=== PATIENT | female | born 1945 ===

== ENCOUNTER 2017-07-11 13:07 | Emergency (ER) | payer MEDICARE, OTHER ==
[2017-07-11 13:08] VITALS: BMI 27.3
[2017-07-11 13:22] VITALS: BP 124/82; PULSE 80; RESP 16; TEMP 98.2; O2SAT 100
[2017-07-11] MEDS ORDERED: Sodium Chloride 0.9% 1,000 ML IV SCH (14:00)
--- NOTE | 2017-07-11 14:06 | ED PDOC ---
HPI: Abdomen Time Seen by Provider: 07/11/17 13:47 Chief Complaint (Nursing): Abdominal Pain History Per: Patient History/Exam Limitations: no limitations Onset/Duration Of Symptoms: Days (7) Outside of [place] travel?: No Current Symptoms Are (Timing): Still Present Context: Food Location Of Pain/Discomfort: Epigastric Quality Of Discomfort: "Pain" Associated Symptoms: Nausea, Loss Of Appetite, Constipation. denies: Vomiting Exacerbating Factors: Food Alleviating Factors: None Last Bowel Movement: Days Ago (3) Additional Complaint(s): 71 year old female, with a past medical history that includes HTN, asthma, hypothyroidism and Diabetes presents to ED with complaints of epigastric abdominal pain for one week. She is unable to describe pain but it is intermittent and worsened after eating. She states she has not eaten for the past 2 days and today felt lightheaded and nauseous, she ate cheerios and pain started again. She also reports no bowel movement for 3 days. Denies fever. Abnormal Vaginal Bleeding: No Past Medical History Reviewed: Historical Data, Nursing Documentation, Vital Signs Vital Signs: Last Vital Signs Temp 98.2 F 07/11/17 13:18 Pulse 80 07/11/17 13:18 Resp 16 07/11/17 13:18 BP 124/82 07/11/17 13:18 Pulse Ox 100 07/11/17 15:50 - Medical History PMH: Anemia, Arthritis (osteoarthritis), Asthma, Depression, Diabetes (type II) , Gastritis, HTN, Hypercholesterolemia, Osteoporosis - Surgical History Surgical History: Cholecystectomy - Family History Family History: States: Unknown Family Hx - Social History Alcohol: None Drugs: Denies - Immunization History Hx Tetanus Toxoid Vaccination: No Hx Influenza Vaccination: No Hx Pneumococcal Vaccination: No - Home Medications Home Medications: Ambulatory Orders Medication Instructions Recorded Brimonidine 0.2% [Alphagan 0.2% 1 drop OU BID 07/21/14 Opht] Ezetimibe [Zetia] 10 mg PO DAILY 07/21/14 Fenofibrate,Micronized 134 mg PO DAILY 07/21/14 [Fenofibrate] Insulin Aspart, Recombinant 10 unit SC BID 07/21/14 [Novolog] Levothyroxine [Synthroid] 0.1 mg PO DAILY 07/21/14 Meclizine [Antivert] 12.5 mg PO DAILY 07/21/14 Montelukast [Singulair] 10 mg PO DAILY 07/21/14 Rosuvastatin Calcium [Crestor] 40 mg PO DAILY 07/21/14 Clotrimazole/Betamethasone 1 ml TOP BID #30 gm 10/02/14 [Lotrisone] Albuterol 0.5% [Albuterol 0.5% 3 ml IH Q4 PRN #60 ml 11/10/14 Inhal Lucy (2.5 mg/0.5 ml) UD] Methylprednisolone [Medrol Dose 4 mg PO DAILY #21 mg 11/10/14 Pack (21 tabs)] guaiFENesin/Codeine [Robitussin 5 ml PO Q4H PRN #240 ml 11/10/14 w/Codeine] traMADol [Ultram] 50 mg PO TID PRN #15 tab 01/12/16 Famotidine [Heartburn Prevention] 20 mg PO DAILY 06/27/16 Valsartan/Hydrochlorothiazide 25 - 320 mg PO DAILY 06/27/16 [Valsartan-Hctz 320-25 mg Tab] traMADol [Ultram] 50 mg PO Q6 PRN #12 tab 06/27/16 Nystatin [Nystatin Oral Susp] 400,000 unit PO Q6 #1 bottle 10/31/16 Azithromycin [Zithromax] 250 mg PO DAILY #6 dose 01/05/17 Benzonatate [Tessalon Perle] 200 mg PO TID PRN #30 capsule 01/05/17 Ferrous Sulfate [Feosol] 325 mg PO TID #90 tab 01/05/17 Naproxen [Naprosyn Tab] 375 mg PO BID PRN #60 tab 01/05/17 Promethazine HCl/Codeine 5 ml PO Q6 PRN #120 ml 01/05/17 [Prometh-Codein 6.25-10 mg/5 ml] Omeprazole 20 mg PO DAILY #30 tablet. 07/11/17 - Allergies Allergies/Adverse Reactions: Allergies Allergy/AdvReac Type Severity Reaction Status Date / Time No Known Allergies Allergy Verified 06/27/16 19:27 Review of Systems Constitutional: Negative for: Fever, Weakness, Malaise Cardiovascular: Negative for: Chest Pain, Palpitations Respiratory: Negative for: Cough, Shortness of Breath Gastrointestinal: Positive for: Nausea, Abdominal Pain, Constipation. Negative for: Vomiting, Diarrhea Genitourinary Female: Negative for: Dysuria Musculoskeletal: Negative for: Back Pain Skin: Negative for: Rash Neurological: Negative for: Weakness, Numbness, Headache, Dizziness Physical Exam - Reviewed Nursing Documentation Reviewed: Yes Vital Signs Reviewed: Yes - Physical Exam Appears: Positive for: Non-toxic, No Acute Distress Head Exam: Positive for: ATRAUMATIC, NORMAL INSPECTION, NORMOCEPHALIC Skin: Positive for: Warm, Dry. Negative for: Diaphoresis, Pallor, Rash Eye Exam: Positive for: Normal appearance Neck: Positive for: Normal, Painless ROM Cardiovascular/Chest: Positive for: Regular Rate, Rhythm, Chest Non Tender. Negative for: Murmur Respiratory: Positive for: Normal Breath Sounds. Negative for: Wheezing, Respiratory Distress Gastrointestinal/Abdominal: Positive for: Soft, Tenderness (mild epigastric). Negative for: Distended, Guarding, Hernia Back: Positive for: Normal Inspection. Negative for: L CVA Tenderness, R CVA Tenderness Extremity: Positive for: Normal ROM. Negative for: Tenderness, Pedal Edema, Deformity, Swelling Neurologic/Psych: Positive for: Alert, Oriented - Laboratory Results Result Diagrams: 07/11/17 14:15 07/11/17 14:15 Urine dip results: Positive for: Leukocyte Esterase (small), Blood (trace) - ECG O2 Sat by Pulse Oximetry: 100 Medical Decision Making Medical Decision Making: Impression: epigastric abdominal pain Prior records reviewed: Last seen 01/05/17 for cough and treated for bronchitis. Plan: * Labs * Obstructive series * IV NS, Pepcid, Toradol Progress: Labs reviewed showing no leukocytosis, NaCl slightly low. NS given Xray ABDOMEN AND PELVIS: Bowel: There is moderate amount of stool in the descending colon. The bowel gas pattern is nonspecific. No evidence of mechanical obstruction. Free air: None. 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 Bones are within normal limits for the patient's age. Other findings: Surgical clips in the right upper quadrant are related to prior cholecystectomy. IMPRESSION: Nonobstructive bowel-gas pattern. Clear lungs. 1530 Patient reevaluated and is resting comfortably in bed, she reports abdominal pain has improved. Vital signs stable, no fever. Abdomen remains soft , no sign of surgical pathology. discuss results with patient and family. Patient feels comfortable going home and will be discharged. Disposition - Clinical Impression Clinical Impression: Epigastric abdominal pain, Gastritis - Patient ED Disposition Is Patient to be Admitted: No Counseled Patient/Family Regarding: Studies Performed, Diagnosis, Need For Followup, Rx Given - Disposition Referrals: Prosper Dickey MD [Staff Provider] - Disposition: Routine/Home Disposition Time: 15:47 Condition: IMPROVED Additional Instructions: [facility] labor[facility]ios nathanael normales Por favor tome medicamentos diariamente [place] necesario para el dolor Seguimiento en la clnica para ms atencin Prescriptions: Omeprazole 20 mg PO DAILY #30 tablet. Instructions: Gastritis (DC) Forms: [employer] (Mosotho) Print Language: SETSWANA - POA Present On Arrival: None
[2017-07-11 14:30] LABS: BASO % 0.5 % (0.0-2.0); EOS # 0.1 K/uL (0.0-0.7); EOS % 1.5 % (0.0-4.0); HEMATOCRIT 34.9 % (34.0-47.0); LYMPH # 1.3 K/uL (1.0-4.3); LYMPH % 19.6 % (20.0-40.0); MEAN CORPUSCULAR HEMOGLOBIN 27.5 pg (27.0-31.0); MEAN CORPUSCULAR HGB CONC 33.5 g/dL (33.0-37.0); MEAN PLATELET VOLUME 8.3 fl (7.2-11.7); MONO # 0.6 K/uL (0.0-0.8); MONO % 8.9 % (0.0-10.0); NEUT # 4.6 K/uL (1.8-7.0); NEUT % 69.5 % (50.0-75.0); RED CELL DISTRIBUTION WIDTH 14.3 % (11.5-14.5); WHITE BLOOD COUNT 6.6 K/uL (4.8-10.8)
[2017-07-11 14:34] LABS: ALB/GLOB RATIO 1.4 (1.0-2.1); ALKALINE PHOSPHATASE 64 U/L (38-126); ALT/SGPT 26 U/L (9-52); AST/SGOT 29 U/L (14-36); BILIRUBIN,TOTAL 0.5 mg/dl (0.2-1.3); BLOOD UREA NITROGEN 22 mg/dl (7-17); CALCIUM 9.9 mg/dL (8.4-10.2); CARBON DIOXIDE 29 mmol/L (22-30); CHLORIDE 82 mmol/L (98-107); GFR AFRICAN-AMERICAN > 60; GLUCOSE,RANDOM 102 mg/dL (65-105); LIPASE 96 U/L (23-300); POTASSIUM 4.1 MMOL/L (3.6-5.0); SODIUM 123 mmol/l (132-148); TOTAL PROTEIN 7.9 G/DL (6.3-8.2)
--- NOTE | 2017-07-11 14:41 | RAD ---
PROCEDURE: Radiographs of the chest and abdomen (obstructive series) HISTORY: abd pain COMPARISON: No prior. TECHNIQUE: AP radiograph of the chest, with upright and supine radiographs of the abdomen. FINDINGS: CHEST: Lungs: Clear. Cardiovascular: Normal size heart. No pulmonary vascular congestion. Pleura: No pleural fluid. No pneumothorax. Other findings: None. ABDOMEN AND PELVIS: Bowel: There is moderate amount of stool in the descending colon. The bowel gas pattern is nonspecific. No evidence of mechanical obstruction. Free air: None. 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 Bones are within normal limits for the patient's age. . Other findings: Surgical clips in the right upper quadrant are related to prior cholecystectomy. IMPRESSION: Nonobstructive bowel-gas pattern. Clear lungs.
== END 2017-07-11 16:09 | disposition home or self-care (01) ==
LOC: H.ER 13:07
DX: K29.70 Gastritis, unspecified, without bleeding (principal); K59.00 Constipation, unspecified; E11.9 Type 2 diabetes mellitus without complications; F32.9 Major depressive disorder, single episode, unspecified; I10 Essential (primary) hypertension; Z79.4 Long term (current) use of insulin
CPT/HCPCS: 74022; 80053; 83690; 85025; 96374; 96375; 99283; J1885; J2405; J7040

== ENCOUNTER 2017-08-28 09:14 | Day surgery (SDC) | payer MEDICARE ==
[2017-08-28] MEDS ORDERED: Lactated Ringer's 500 ML IV ONE (09:22)
[2017-08-28 10:21] VITALS: O2SAT 100
[2017-08-28] MEDS ORDERED: Propofol 10 mg/ml Inj (20 ML) ONE (11:09)
[2017-08-28 11:51] VITALS: BP 145/77; PULSE 78; RESP 14; TEMP 97
== END 2017-08-28 12:30 | disposition home or self-care (01) ==
LOC: H.ENDO 09:14
PROVIDERS: ATTEND Internal Medicine Gastroenterology
DX: Z12.11 Encounter for screening for malignant neoplasm of colon (principal); K29.50 Unspecified chronic gastritis without bleeding; I10 Essential (primary) hypertension; E11.51 Type 2 diabetes mellitus with diabetic peripheral angiopathy without gangrene; K64.8 Other hemorrhoids
CPT/HCPCS: 43239; 88305; G0121; J2704; J7120

== ENCOUNTER 2018-01-29 23:00 | Observation (INO) | payer MEDICARE, OTHER ==
[2018-01-30 00:36] LABS: URINE BILIRUBIN NEGATIVE (NEGATIVE); URINE BLOOD SMALL (NEGATIVE); URINE CLARITY CLEAR (Clear); URINE COLOR STRAW (YELLOW); URINE GLUCOSE (UA) NEG (Normal); URINE LEUKOCYTE ESTERASE NEG Leu/uL (Negative); URINE PROTEIN NEGATIVE (NEGATIVE); URINE UROBILINOGEN 0.2-1.0 mg/dL (0.2-1.0)
[2018-01-30 00:37] LABS: BASO % 0.5 % (0.0-2.0); EOS # 0.1 K/uL (0.0-0.7); EOS % 1.7 % (0.0-4.0); HEMOGLOBIN 11.2 g/dL (12.0-16.0); LYMPH # 1.1 K/uL (1.0-4.3); LYMPH % 14.2 % (20.0-40.0); MEAN CELL VOLUME 82.4 fl (81.0-99.0); MEAN CORPUSCULAR HEMOGLOBIN 27.2 pg (27.0-31.0); MONO # 0.5 K/uL (0.0-0.8); MONO % 6.8 % (0.0-10.0); NEUT # 5.8 K/uL (1.8-7.0); NEUT % 76.8 % (50.0-75.0); RBC 4.1 Mil/uL (3.80-5.20); RED CELL DISTRIBUTION WIDTH 15.3 % (11.5-14.5); WHITE BLOOD COUNT 7.5 K/uL (4.8-10.8)
--- NOTE | 2018-01-30 00:40 | ED PDOC ---
HPI: Hypertension/Hypotension Time Seen by Provider: 01/29/18 23:38 Chief Complaint (Nursing): High Blood Pressure Chief Complaint (Provider): High Blood Pressure History Per: Patient History/Exam Limitations: no limitations Onset/Duration Of Symptoms: Days (x1) Current Symptoms Are (Timing): Still Present Additional Complaint(s): 72 y/o female with a pmhx of HTN, hypercholesterolemia, and diabetes, who presents to the ED due to elevated BP today. States she checks her BP at home and today she had 3 readings above 180 systolic. Denies headache, chest pain, or shortness of breath. Also reports epigastric pain x3 weeks. States pain is not exacerbated by food or exertion. Denies burning sensation or radiation of pain. Patient states she is compliant with all medication and denies skipping any doses. PMD: Clinic Past Medical History Reviewed: Historical Data, Nursing Documentation, Vital Signs Vital Signs: Last Vital Signs Temp 98 F 01/29/18 23:11 Pulse 74 01/29/18 23:11 Resp 18 01/29/18 23:11 BP 187/78 H 01/29/18 23:11 Pulse Ox 99 01/29/18 23:11 - Medical History PMH: Anemia, Arthritis (osteoarthritis), Asthma, Depression, Diabetes (type II) , Gastritis, HTN, Hypercholesterolemia, Osteoporosis Denies: Chronic Kidney Disease - Surgical History Surgical History: Cholecystectomy - Family History Family History: States: Unknown Family Hx - Social History Current smoker - smoking cessation education provided: No Alcohol: None Drugs: Denies - Immunization History Hx Tetanus Toxoid Vaccination: No Hx Influenza Vaccination: No Hx Pneumococcal Vaccination: No - Home Medications Home Medications: Ambulatory Orders Medication Instructions Recorded Unobtainable 08/28/17 - Allergies Allergies/Adverse Reactions: Allergies Allergy/AdvReac Type Severity Reaction Status Date / Time No Known Allergies Allergy Verified 06/27/16 19:27 Review of Systems ROS Statement: Except As Marked, All Systems Reviewed And Found Negative Cardiovascular: Positive for: Other (High Blood Pressure). Negative for: Chest Pain Respiratory: Negative for: Shortness of Breath Gastrointestinal: Positive for: Abdominal Pain Neurological: Negative for: Headache Physical Exam - Reviewed Nursing Documentation Reviewed: Yes Vital Signs Reviewed: Yes - Physical Exam Appears: Positive for: Non-toxic, No Acute Distress Head Exam: Positive for: ATRAUMATIC, NORMAL INSPECTION, NORMOCEPHALIC Skin: Positive for: Normal Color, Warm, Dry. Negative for: Rash Eye Exam: Positive for: EOMI, Normal appearance, PERRL Neck: Positive for: Normal, Painless ROM, Supple Cardiovascular/Chest: Positive for: Regular Rate, Rhythm. Negative for: Murmur Respiratory: Positive for: Normal Breath Sounds. Negative for: Respiratory Distress Gastrointestinal/Abdominal: Positive for: Normal Exam, Bowel Sounds, Soft. Negative for: Tenderness Back: Positive for: Normal Inspection. Negative for: L CVA Tenderness, R CVA Tenderness, Vertebral Tenderness Extremity: Positive for: Normal ROM. Negative for: Pedal Edema, Deformity Neurologic/Psych: Positive for: Alert, Oriented. Negative for: Motor/Sensory Deficits - Laboratory Results Result Diagrams: 01/30/18 00:08 01/30/18 00:08 - ECG O2 Sat by Pulse Oximetry: 99 (RA) Pulse Ox Interpretation: Normal Medical Decision Making Medical Decision Making: Time: 23:51 Initial Impression and plan: Patient with significant cardiac risk factors presenting with elevated BP reading and epigastric pain. Will order EKG and troponin to rule out cardiac involvement. Elevated BP may be secondary to pain. Will try PPI for epigastric pain and recheck BP afterwards. --EKG: NSR, no ST changes 345AM 1nd and 2nd troponin in indeterminate range. BP normalizing. Patient took ASA today. Given significant cardiac risk factors, will place in OBS for continuous cardiac monitoring and serial troponins. Patient improving. FP resident aware. Scribe Attestation: Documented by Rico Thrasher, acting as a scribe for Peter Andrea MD. Provider Scribe Attestation: All medical record entries made by the Scribe were at my direction and personally dictated by me. I have reviewed the chart and agree that the record accurately reflects my personal performance of the history, physical exam, medical decision making, and the department course for this patient. I have also personally directed, reviewed, and agree with the discharge instructions and disposition. Disposition - Clinical Impression Clinical Impression: Hypertension, Epigastric pain - Disposition Disposition Time: 03:50 Condition: IMPROVED Forms: [facility] (Samoan)
[2018-01-30 00:55] LABS: PARTIAL THROMBOPLASTIN TIME 33.3 Seconds (25.6-37.1); PROTHROMBIN TIME 11.5 Seconds (9.8-13.1)
[2018-01-30 01:52] LABS: BLOOD UREA NITROGEN 26 mg/dl (7-17); GFR AFRICAN-AMERICAN > 60; GFR NON-AFRICAN AMERICAN > 60
[2018-01-30 01:53] LABS: CALCIUM 9.6 mg/dL (8.4-10.2); LIPASE 115 U/L (23-300)
--- NOTE | 2018-01-30 04:57 | CP.PCM.HP ---
History of Present Illness - History of Present Illness History of Present Illness: 72 year old female presented to ED with complaints of high BP. She was checking her BP as she regularly does at home, but had readings greater than 180 systolic , prompting ED visit. She takes all her medications as prescribed and took them yesterday. The patient did admit to having epigastric pain as well, but states that this is has been ongoing for past 11 years, and it began after her cholecystectomy. This pain is brought on with most meals, worse with meat. She abstains from eating meat. She states she had upper endoscopy in [address] Lizarraga, +h.pylori, chronic gastritis . s/p treatment with antibiotics and test of cure negative, as per patient. There was no associated headaches, visual changes, chest pain or pressure, dyspnea, nausea or vomiting. PMD: Dr. Ayala Moulder Operator: Dr. Cartagena, last appointment 3 months ago, next appointment in February. PMH: HTN, IDDM, asthma, chronic gastritis Medications: as per med rec Allergies: NKDA Social : denies etoh, tobacco, illicit drugs. Surgical Hx: cholecystectomy Present on Admission - Present on Admission Any Indicators Present on Admission: No Past Patient History - Infectious Disease Hx of Infectious Diseases: None - Tetanus Immunizations Tetanus Immunization: Up to Date (given January 2016) - Past Medical History & Family History Past Medical History?: Yes - Past Social History Smoking Status: Never Smoked Alcohol: None Drugs: Denies - CARDIAC Hx Cardiac Disorders: No Hx Circulatory Problems: Yes (lower extemities) Hx Congestive Heart Failure: No Hx Heart Attack: No Hx Hypertension: Yes - PULMONARY Hx Asthma: Yes - NEUROLOGICAL Hx Neurological Disorder: No - HEENT Hx HEENT Problems: No - RENAL Hx Chronic Kidney Disease: No - ENDOCRINE/METABOLIC Hx Endocrine Disorders: Yes Hx Diabetes Mellitus Type 2: Yes - HEMATOLOGICAL/ONCOLOGICAL Hx Anemia: Yes - INTEGUMENTARY Hx Dermatological Problems: No - MUSCULOSKELETAL/RHEUMATOLOGICAL Hx Arthritis: Yes (osteoarthritis) Hx Osteoporosis: Yes - GASTROINTESTINAL Hx Gastritis: Yes - GENITOURINARY/GYNECOLOGICAL Hx Genitourinary Disorders: No - PSYCHIATRIC Hx Depression: Yes - SURGICAL HISTORY Hx Cholecystectomy: Yes - ANESTHESIA Hx Anesthesia: Yes Hx Anesthesia Reactions: No Hx Malignant Hyperthermia: No Meds Allergies/Adverse Reactions: Allergies Allergy/AdvReac Type Severity Reaction Status Date / Time No Known Allergies Allergy Verified 08/23/16 19:27 Physical Exam - Constitutional Appears: Well, Non-toxic, No Acute Distress - Head Exam Head Exam: ATRAUMATIC, NORMAL INSPECTION, NORMOCEPHALIC - Eye Exam Eye Exam: EOMI, Normal appearance, PERRL Pupil Exam: NORMAL ACCOMODATION, PERRL - ENT Exam ENT Exam: Mucous Membranes Moist, Normal Exam - Neck Exam Neck exam: Positive for: Normal Inspection - Respiratory Exam Respiratory Exam: Clear to Auscultation Bilateral, NORMAL BREATHING PATTERN. absent: Decreased Breath Sounds, Rhonchi, Wheezes, Stridor - Cardiovascular Exam Cardiovascular Exam: REGULAR RHYTHM, +S1, +S2 Additional comments: PVCs seen on monitor - GI/Abdominal Exam GI & Abdominal Exam: Normal Bowel Sounds, Soft. absent: Distended, Guarding, Tenderness - Extremities Exam Extremities exam: Positive for: normal inspection. Negative for: pedal edema, tenderness - Neurological Exam Neurological exam: Alert, CN II-XII Intact, Normal Gait, Oriented x3 - Psychiatric Exam Psychiatric exam: Normal Affect, Normal Mood Results - Vital Signs Recent Vital Signs: Last Vital Signs Temp 98.2 F 01/30/18 04:11 Pulse 68 01/30/18 04:11 Resp 18 01/30/18 04:11 BP 143/63 01/30/18 04:11 Pulse Ox 99 01/30/18 03:51 - Labs Result Diagrams: 01/30/18 00:08 01/30/18 00:08 Labs: Laboratory Results - last 24 hr 01/30/18 01/30/18 01/30/18 00:08 00:08 00:08 WBC 7.5 RBC 4.10 Hgb 11.2 L Hct 33.8 L MCV 82.4 MCH 27.2 MCHC 33.0 RDW 15.3 H Plt Count 234 MPV 9.0 Neut % (Auto) 76.8 H Lymph % (Auto) 14.2 L [place] % (Auto) 6.8 Eos % (Auto) 1.7 Baso % (Auto) 0.5 Neut # (Auto) 5.8 Lymph # (Auto) 1.1 [place] # (Auto) 0.5 Eos # (Auto) 0.1 Baso # (Auto) 0.0 PT 11.5 INR 1.0 APTT 33.3 Sodium 131 L Potassium 3.7 Chloride 90 L Carbon Dioxide 30 Anion Gap 15 BUN 26 H Creatinine 0.9 Est GFR ( Amer) > 60 Est GFR (Non-Af Amer) > 60 Random Glucose 162 H Calcium 9.6 Troponin I 0.0280 Lipase 115 Urine Color Urine Clarity Urine pH Ur Specific [place] Urine Protein Urine Glucose (UA) Urine Ketones Urine Blood Urine Nitrate Urine Bilirubin Urine Urobilinogen Ur Leukocyte Esterase Urine RBC (Auto) Urine Microscopic WBC 01/30/18 01/30/18 00:08 03:00 WBC RBC Hgb Hct MCV MCH MCHC RDW Plt Count MPV Neut % (Auto) Lymph % (Auto) [place] % (Auto) Eos % (Auto) Baso % (Auto) Neut # (Auto) Lymph # (Auto) [place] # (Auto) Eos # (Auto) Baso # (Auto) PT INR APTT Sodium Potassium Chloride Carbon Dioxide Anion Gap BUN Creatinine Est GFR ( Amer) Est GFR (Non-Af Amer) Random Glucose Calcium Troponin I 0.0290 Lipase Urine Color Straw Urine Clarity Clear Urine pH 7.0 Ur Specific [place] 1.010 Urine Protein Negative Urine Glucose (UA) Neg Urine Ketones Negative Urine Blood Small Urine Nitrate Negative Urine Bilirubin Negative Urine Urobilinogen 0.2-1.0 Ur Leukocyte Esterase Neg Urine RBC (Auto) 2 Urine Microscopic WBC 2 Assessment & Plan (1) Epigastric abdominal pain Assessment and Plan: 72 year old female with IDDM, HTN, Asthma, chronic gastritis presented with complaints of high BP and epigastric abdominal pain. Given that the patient has a history of DM and hypertension, as well as being an elderly female she was admitted for observation to telemetry, rule out ACS. Patient was given Pepcid in ED, abdominal pain resolved. BP normalized. She had 2 troponins done while in ED, as per ED attending they were inconclusive therefore will repeat a third troponin. Status: Acute (2) IDDM (insulin dependent diabetes mellitus) Assessment and Plan: last hga1c: 7.7 in Dec 2017 managed with Janumet 50-1000mg, Lantus 25 qhs accuchecks Status: Chronic (3) Hypertension Assessment and Plan: BP within acceptable limits -valsartan/hctz : 320-25mg -Norvasc 10mg Status: Chronic (4) Asthma Assessment and Plan: c/w montelukast Status: Chronic (5) Anemia Assessment and Plan: appears to be chronic, Hg 11.2 -normocytic anemia Status: Chronic (6) DVT prophylaxis Assessment and Plan: lovenox Status: Acute
[2018-01-30] MEDS: Metoprolol Succinate 25 mg XL Tab PO SCH ×2 (07:34→09:30)
[2018-01-30] MEDS ORDERED: Enoxaparin 40 mg Syringe SC SCH (09:00)
[2018-01-30] MEDS ORDERED: Insulin Detemir 100 Units/ml Inj SC SCH (09:00)
[2018-01-30 09:35] LABS: BLOOD UREA NITROGEN 21 mg/dl (7-17); CALCIUM 9.9 mg/dL (8.4-10.2); GFR AFRICAN-AMERICAN > 60; GFR NON-AFRICAN AMERICAN > 60
--- NOTE | 2018-01-30 11:42 | RAD ---
HISTORY: hypertensive, epig pain COMPARISON: 01/05/2017 TECHNIQUE: Chest PA and lateral FINDINGS: LUNGS: No active pulmonary disease. PLEURA: No significant pleural effusion identified. No pneumothorax apparent. CARDIOVASCULAR: Normal. 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 OTHER FINDINGS: None. IMPRESSION: No acute infiltrate.
[2018-01-30 11:44] VITALS: BMI 24.7
[2018-01-30 12:04] VITALS: BP 106/58; RESP 20; TEMP 98.6; O2SAT 97
[2018-01-30 14:31] VITALS: PULSE 65
--- NOTE | 2018-01-30 17:01 | CP.PCM.DIS ---
Provider - Provider Date of Admission: 01/30/18 03:48 Attending physician: Alana Salazar MD Primary care physician: Manny Leal MD Time Spent in preparation of Discharge (in minutes): 30 Diagnosis - Discharge Diagnosis (1) Acid reflux Status: Chronic Comment: Pt presented with epigastric pain. Cardiac causes ruled out with EKG and 2 negative troponins. Has pepcid at home. (2) Hypertension Status: Chronic Comment: Pt's hypertension resolved when she was given her antihypertensive medication; appt made for water attendant for further BP control. Hospital Course - Lab Results Lab Results: Most Recent Lab Values WBC 7.5 K/uL (4.8-10.8) 01/30/18 00:08 RBC 4.10 Mil/uL (3.80-5.20) 01/30/18 00:08 Hgb 11.2 g/dL (12.0-16.0) L 01/30/18 00:08 Hct 33.8 % (34.0-47.0) L 01/30/18 00:08 MCV 82.4 fl (81.0-99.0) 01/30/18 00:08 MCH 27.2 pg (27.0-31.0) 01/30/18 00:08 MCHC 33.0 g/dL (33.0-37.0) 01/30/18 00:08 RDW 15.3 % (11.5-14.5) H 01/30/18 00:08 Plt Count 234 K/uL (130-400) 01/30/18 00:08 MPV 9.0 fl (7.2-11.7) 01/30/18 00:08 Neut % (Auto) 76.8 % (50.0-75.0) H 01/30/18 00:08 Lymph % (Auto) 14.2 % (20.0-40.0) L 01/30/18 00:08 [place] % (Auto) 6.8 % (0.0-10.0) 01/30/18 00:08 Eos % (Auto) 1.7 % (0.0-4.0) 01/30/18 00:08 Baso % (Auto) 0.5 % (0.0-2.0) 01/30/18 00:08 Neut # (Auto) 5.8 K/uL (1.8-7.0) 01/30/18 00:08 Lymph # (Auto) 1.1 K/uL (1.0-4.3) 01/30/18 00:08 [place] # (Auto) 0.5 K/uL (0.0-0.8) 01/30/18 00:08 Eos # (Auto) 0.1 K/uL (0.0-0.7) 01/30/18 00:08 Baso # (Auto) 0.0 K/uL (0.0-0.2) 01/30/18 00:08 PT 11.5 Seconds (9.8-13.1) 01/30/18 00:08 INR 1.0 (0.9-1.2) 01/30/18 00:08 APTT 33.3 Seconds (25.6-37.1) 01/30/18 00:08 Sodium 134 mmol/l (132-148) 01/30/18 08:48 Potassium 3.8 MMOL/L (3.6-5.0) 01/30/18 08:48 Chloride 90 mmol/L (98-107) L 01/30/18 08:48 Carbon Dioxide 30 mmol/L (22-30) 01/30/18 08:48 Anion Gap 18 (10-20) 01/30/18 08:48 BUN 21 mg/dl (7-17) H 01/30/18 08:48 Creatinine 0.8 mg/dl (0.7-1.2) 01/30/18 08:48 Est GFR ( Amer) > 60 01/30/18 08:48 Est GFR (Non-Af Amer) > 60 01/30/18 08:48 POC Glucose (mg/dL) 263 mg/dL (65-110) H 01/30/18 10:58 Random Glucose 138 mg/dL (65-105) H 01/30/18 08:48 Calcium 9.9 mg/dL (8.4-10.2) 01/30/18 08:48 Troponin I 0.0300 ng/mL (0.00-0.120) 01/30/18 08:48 Lipase 115 U/L (23-300) 01/30/18 00:08 Urine Color Straw (YELLOW) 01/30/18 00:08 Urine Clarity Clear (Clear) 01/30/18 00:08 Urine pH 7.0 (5.0-8.0) 01/30/18 00:08 Ur Specific [place] 1.010 (1.003-1.030) 01/30/18 00:08 Urine Protein Negative mg/dL (NEGATIVE) 01/30/18 00:08 Urine Glucose (UA) Neg mg/dL (Normal) 01/30/18 00:08 Urine Ketones Negative mg/dL (NEGATIVE) 01/30/18 00:08 Urine Blood Small (NEGATIVE) 01/30/18 00:08 Urine Nitrate Negative (NEGATIVE) 01/30/18 00:08 Urine Bilirubin Negative (NEGATIVE) 01/30/18 00:08 Urine Urobilinogen 0.2-1.0 mg/dL (0.2-1.0) 01/30/18 00:08 Ur Leukocyte Esterase Neg [place]/uL (Negative) 01/30/18 00:08 Urine RBC (Auto) 2 /hpf (0-3) 01/30/18 00:08 Urine Microscopic WBC 2 /hpf (0-5) 01/30/18 00:08 - Hospital Course Hospital Course: Pt with hx HTN, HLD, asthma, DM2 presented to ED due to elevated BP reading at home, and complained of epigastric pain. Cardiac causes of epigastric pain considered- EKG wnl and troponins negative x2. Pt takes pepcid at home. She had elevated BP this am, which resolved when she took her medications. Pt has not seen water attendant Dr. Osiel Medina in several months (sees him for optimizing BP control); appointment was made for her to see water attendant next week, and to see her PMD on 02/20. Discharge Exam - Head Exam Head Exam: ATRAUMATIC, NORMAL INSPECTION, NORMOCEPHALIC - Eye Exam Eye Exam: Normal appearance - ENT Exam ENT Exam: Mucous Membranes Moist - Respiratory Exam Respiratory Exam: Clear to PA & Lateral, NORMAL BREATHING PATTERN, UNREMARKABLE - Cardiovascular Exam Cardiovascular Exam: REGULAR RHYTHM, +S1, +S2 - GI/Abdominal Exam GI & Abdominal Exam: Normal Bowel Sounds, Soft, Tenderness (mild epigastric tenderness) - Extremities Exam Extremities exam: normal inspection Additional comments: no calf tenderness, no edema - Neurological Exam Neurological exam: Alert - Psychiatric Exam Psychiatric exam: Normal Affect - Skin Skin Exam: Dry, Normal Color, Warm Discharge Plan - Follow Up Plan Condition: STABLE Disposition: HOME/ ROUTINE Patient education suggested?: Yes Instructions: Acid Reflux (Gastroesophageal Reflux Disease) in Adults Additional Instructions: Please see your water attendant Dr. Medina on 02/07/18 at 2 pm. Usted tiene mitesh rosalba con [facility] cardiologo doctor Carol alfonso [address] las 2: 00 en [facility]. José de clinica de cardiologo: [phone] Please follow up with Dr. Leal at scheduled appt on 02/20/18 at 10:20 am. Tiene mitesh rosalba con [facility] doctor primario Dr. Leal [address] las 10:20 en la [facility]. José de clinica: [phone] Referrals: Osiel Medina [Other] - 02/07/18 2:00 pm () Manny Leal MD [Primary Care Provider] - 02/20/18 10:20 am
--- NOTE | 2018-01-30 19:34 | CARD ---
APPROVED REPORT EKG Measurement Heart [id number] <Conclusion> Normal sinus rhythm Normal ECG
== END 2018-01-30 15:30 | disposition home or self-care (01) ==
LOC: H.ER 23:00 → H.ERHOLD 01-30 03:48 → H.TEL 01-30 06:32
PROVIDERS: ADMIT Family Medicine Geriatric Medicine; ATTEND Family Medicine Geriatric Medicine
DX: K21.9 Gastro-esophageal reflux disease without esophagitis (principal); I10 Essential (primary) hypertension; E78.5 Hyperlipidemia, unspecified; E78.00 Pure hypercholesterolemia, unspecified; E11.9 Type 2 diabetes mellitus without complications; Z79.4 Long term (current) use of insulin; M19.90 Unspecified osteoarthritis, unspecified site; J45.909 Unspecified asthma, uncomplicated; F32.9 Major depressive disorder, single episode, unspecified; K29.50 Unspecified chronic gastritis without bleeding; D64.9 Anemia, unspecified; M81.0 Age-related osteoporosis without current pathological fracture
CPT/HCPCS: 71046; 80048; 81003; 82948; 83690; 84484; 85025; 85610; 85730; 93005; 96374; 99285; G0378; J1650

== ENCOUNTER 2018-04-11 12:20 | Emergency (ER) | payer MEDICARE, OTHER ==
[2018-04-11 12:20] VITALS: BMI 27.3
[2018-04-11 12:29] VITALS: BP 130/64; PULSE 64; RESP 16; TEMP 97.4; O2SAT 99
--- NOTE | 2018-04-11 13:22 | ED PDOC ---
Upper Extremity Pain/Injury Time Seen by Provider: 04/11/18 13:00 Chief Complaint (Nursing): Upper Extremity Problem/Injury Chief Complaint (Provider): Left arm pain History Per: Patient History/Exam Limitations: language barrier (translated by delroy) Onset/Duration Of Symptoms: Days (x3), Worse Since (last night) Current Symptoms Are (Timing): Still Present Quality: "Pain" Exacerbating Factor(s): Movement, Worse At Night Additional Complaint(s): Pratima Abraham is a 73 year old female, with a past medical history of diabetes, hypertension, osteoporosis, arthritis and hypercholesterolemia, who presents to the emergency department complaining of left arm & shoulder pain onset for x3 days. Patient states pain is worst with movement and at night. Patient reports pain has been worsening since onset which prompted ED visit today. She denies any falls, injuries or heavy lifting, fever, chills, chest pain or shortness of breath. No further medical complaints. PMD: [facility]. Past Medical History Reviewed: Historical Data, Nursing Documentation, Vital Signs Vital Signs: Last Vital Signs Temp 97.4 F L 04/11/18 12:25 Pulse 64 04/11/18 12:25 Resp 16 04/11/18 12:25 BP 130/64 04/11/18 12:25 Pulse Ox 99 04/11/18 12:25 - Medical History PMH: Anemia, Arthritis, Asthma, Depression, Diabetes (type II), Gastritis, HTN, Hypercholesterolemia, Osteoporosis Denies: CHF, HIV, Chronic Kidney Disease - Surgical History Surgical History: Cholecystectomy - Family History Family History: States: Unknown Family Hx - Social History Alcohol: None Drugs: Denies - Immunization History Hx Tetanus Toxoid Vaccination: No Hx Influenza Vaccination: No Hx Pneumococcal Vaccination: No - Home Medications Home Medications: Ambulatory Orders Medication Instructions Recorded Albuterol Sulfate [Proair Hfa] 2 puff PO TID PRN 01/30/18 Aspirin [Ecotrin] 81 mg PO DAILY 01/30/18 Fluticasone Propionate [Flovent 2 puff PO TID PRN 01/30/18 Hfa] Gabapentin [Neurontin] 300 mg PO DAILY 01/30/18 Insulin Glargine, Recombina 25 units SC BID 01/30/18 [Lantus] Metoprolol Succinate [Toprol XL] 25 mg PO DAILY 01/30/18 Montelukast [Singulair] 10 mg PO HS 01/30/18 Rosuvastatin Calcium 2.5 [Crestor] 20 mg PO DAILY 01/30/18 Sitagliptin Phos/Metformin HCl 1 tab PO BID 01/30/18 [Janumet 50-1,000 mg Tablet] Valsartan/Hydrochlorothiazide 1 tab PO DAILY 01/30/18 [Valsartan-Hctz 320-25 mg Tab] Acetaminophen with Codeine 1 tab PO Q6H PRN #15 tab 04/11/18 [Tylenol with Codeine No. 3 300 mg-30 mg] - Allergies Allergies/Adverse Reactions: Allergies Allergy/AdvReac Type Severity Reaction Status Date / Time No Known Allergies Allergy Verified 06/27/16 19:27 Review of Systems ROS Statement: Except As Marked, All Systems Reviewed And Found Negative Constitutional: Negative for: Fever, Chills Cardiovascular: Negative for: Chest Pain Respiratory: Negative for: Shortness of Breath Musculoskeletal: Positive for: Shoulder Pain (left), Arm Pain (left) Physical Exam - Reviewed Nursing Documentation Reviewed: Yes Vital Signs Reviewed: Yes - Physical Exam Appears: Positive for: Non-toxic Head Exam: Positive for: ATRAUMATIC, NORMOCEPHALIC Skin: Positive for: Normal Color, Warm, Dry Eye Exam: Positive for: Normal appearance Neck: Positive for: Painless ROM, Supple Cardiovascular/Chest: Positive for: Regular Rate, Rhythm. Negative for: Murmur Respiratory: Positive for: Normal Breath Sounds. Negative for: Respiratory Distress Extremity: Positive for: Normal ROM (upper and lower extremities). Negative for : Deformity, Swelling Neurologic/Psych: Positive for: Alert, Oriented. Negative for: Motor/Sensory Deficits - Laboratory Results Result Diagrams: 04/11/18 13:45 04/11/18 17:50 - ECG O2 Sat by Pulse Oximetry: 99 (RA) Pulse Ox Interpretation: Normal Medical Decision Making Medical Decision Making: Time: 13:00 Initial Impression: left arm pain Initial Plan: --EKG --CMP --Troponin I --CBC w/ differential --Chest two views (PA/LAT) [RAD] --Shoulder left [RAD] --Reevaluation 14:06 Shoulder X-Ray FINDINGS: BONES: No acute fracture. JOINTS: Glenohumeral and acromioclavicular joint degenerative change. SOFT TISSUES: Normal. OTHER FINDINGS: None. IMPRESSION: No demonstrated fracture or dislocation. Degenerative changes. 14:07 CXR FINDINGS: LUNGS: No active pulmonary disease. PLEURA: No significant pleural effusion identified. No pneumothorax apparent. CARDIOVASCULAR: Atherosclerotic aortic calcifications. Cardiomediastinal silhouette stably enlarged. 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 Unchanged. VISUALIZED UPPER ABDOMEN: Right upper quadrant surgical clips redemonstrated. OTHER FINDINGS: None. IMPRESSION: No active disease. 1L NS ordered - repeat BUN and troponin. Troponin (-) Discussed pain medications for at home and side effects with patient. Scribe Attestation: Documented by Stevie Perla, acting as a scribe for Rosa Cohn PA-C Provider Scribe Attestation: All medical record entries made by the Scribe were at my direction and personally dictated by me. I have reviewed the chart and agree that the record accurately reflects my personal performance of the history, physical exam, medical decision making, and the department course for this patient. I have also personally directed, reviewed, and agree with the discharge instructions and disposition. Disposition - Clinical Impression Clinical Impression: Shoulder pain, Arthritis - Patient ED Disposition Is Patient to be Admitted: No Counseled Patient/Family Regarding: Diagnosis, Need For Followup, Rx Given - Disposition Referrals: Osiel Montero III, MD [Staff Provider] - Disposition: Routine/Home Disposition Time: 18:27 Condition: GOOD Prescriptions: Acetaminophen with Codeine [Tylenol with Codeine No. 3 300 mg-30 mg] 1 tab PO Q6H PRN #15 tab PRN Reason: Pain, Severe (8-10) Instructions: Arthritis and Exercise, Shoulder Pain (DC) Forms: [employer] (Iranian) Print Language: IRAQI
--- NOTE | 2018-04-11 14:07 | RAD ---
PROCEDURE: Radiographs of the Left Shoulder HISTORY: pain, 3 days, no trauma COMPARISON: No prior. FINDINGS: BONES: No acute fracture. JOINTS: Glenohumeral and acromioclavicular joint degenerative change. SOFT TISSUES: Normal. OTHER FINDINGS: None. IMPRESSION: No demonstrated fracture or dislocation. Degenerative changes.
--- NOTE | 2018-04-11 14:09 | RAD ---
HISTORY: left arm pain COMPARISON: Chest radiograph dated 01/30/2018. TECHNIQUE: Chest PA and lateral FINDINGS: LUNGS: No active pulmonary disease. PLEURA: No significant pleural effusion identified. No pneumothorax apparent. CARDIOVASCULAR: Atherosclerotic aortic calcifications. Cardiomediastinal silhouette stably enlarged. 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 Unchanged. VISUALIZED UPPER ABDOMEN: Right upper quadrant surgical clips redemonstrated. OTHER FINDINGS: None. IMPRESSION: No active disease.
[2018-04-11 14:20] LABS: BASO % 0.6 % (0.0-2.0); EOS # 0.1 K/uL (0.0-0.7); EOS % 1.7 % (0.0-4.0); HEMOGLOBIN 11.4 g/dL (12.0-16.0); LYMPH # 1.3 K/uL (1.0-4.3); LYMPH % 20.2 % (20.0-40.0); MEAN CELL VOLUME 82.9 fl (81.0-99.0); MEAN CORPUSCULAR HGB CONC 33.8 g/dL (33.0-37.0); MEAN PLATELET VOLUME 9.3 fl (7.2-11.7); MONO # 0.6 K/uL (0.0-0.8); MONO % 9.1 % (0.0-10.0); NEUT # 4.4 K/uL (1.8-7.0); NEUT % 68.4 % (50.0-75.0); RBC 4.08 Mil/uL (3.80-5.20); RED CELL DISTRIBUTION WIDTH 15.2 % (11.5-14.5); WHITE BLOOD COUNT 6.4 K/uL (4.8-10.8)
[2018-04-11 14:28] LABS: ALB/GLOB RATIO 1.2 (1.0-2.1); ALBUMIN 4.3 g/dL (3.5-5.0); ALT/SGPT 28 U/L (9-52); AST/SGOT 31 U/L (14-36); BLOOD UREA NITROGEN 25 mg/dl (7-17); CALCIUM 9.7 mg/dL (8.4-10.2); GFR AFRICAN-AMERICAN > 60; GFR NON-AFRICAN AMERICAN > 60
[2018-04-11] MEDS ORDERED: Sodium Chloride 0.9% 1,000 ML IV STA (15:06)
--- NOTE | 2018-04-11 15:35 | CARD ---
APPROVED REPORT EKG Measurement Heart [id number] 150P59 [id number] <Conclusion> Normal sinus rhythm Normal ECG
[2018-04-11 18:23] LABS: TROPONIN I 0.015 ng/mL (0.00-0.120)
== END 2018-04-11 18:45 | disposition home or self-care (01) ==
LOC: H.ER 12:20
DX: M19.012 Primary osteoarthritis, left shoulder (principal); E11.9 Type 2 diabetes mellitus without complications; E78.00 Pure hypercholesterolemia, unspecified; I10 Essential (primary) hypertension; Z79.4 Long term (current) use of insulin; Z79.82 Long term (current) use of aspirin
CPT/HCPCS: 71046; 73030; 80053; 84484; 84520; 85025; 93005; 99283; J7030

== ENCOUNTER 2018-10-27 19:30 | Emergency (ER) | payer MEDICARE, OTHER ==
[2018-10-27 19:31] VITALS: BMI 27.3
[2018-10-27 19:47] VITALS: BP 177/71; PULSE 74; RESP 16; TEMP 98; O2SAT 98
[2018-10-27] MEDS ORDERED: Sodium Chloride 0.9% 1,000 ML IV STA (20:44)
[2018-10-27 20:51] LABS: BASO % 0.5 % (0.0-2.0); EOS # 0.1 K/uL (0.0-0.7); EOS % 0.7 % (0.0-4.0); HEMOGLOBIN 11.7 g/dL (12.0-16.0); LYMPH # 1.2 K/uL (1.0-4.3); LYMPH % 15.3 % (20.0-40.0); MEAN CELL VOLUME 84.1 fl (81.0-99.0); MEAN CORPUSCULAR HEMOGLOBIN 27.5 pg (27.0-31.0); MEAN CORPUSCULAR HGB CONC 32.8 g/dL (33.0-37.0); MEAN PLATELET VOLUME 8.5 fl (7.2-11.7); MONO # 0.6 K/uL (0.0-0.8); MONO % 7.5 % (0.0-10.0); NEUT # 5.9 K/uL (1.8-7.0); NRBC % 0.1 % (0.0-0.0); RBC 4.24 Mil/uL (3.80-5.20); RED CELL DISTRIBUTION WIDTH 14.3 % (11.5-14.5); WHITE BLOOD COUNT 7.8 K/uL (4.8-10.8)
[2018-10-27 21:02] LABS: ALB/GLOB RATIO 1.3 (1.0-2.1); ALBUMIN 4.8 g/dL (3.5-5.0); ALT/SGPT 19 U/L (9-52); AST/SGOT 29 U/L (14-36); BLOOD UREA NITROGEN 27 mg/dl (7-17); CALCIUM 9.8 mg/dL (8.4-10.2); GFR NON-AFRICAN AMERICAN > 60; LIPASE 140 U/L (23-300)
--- NOTE | 2018-10-27 21:28 | ED PDOC ---
Syncope/Near Syncope/Dizziness Time Seen by Provider: 10/27/18 19:53 Chief Complaint (Nursing): Dizziness/Lightheaded Chief Complaint (Provider): Dizziness, abdominal pain History Per: Patient History/Exam Limitations: no limitations Onset/Duration Of Symptoms: Days Current Symptoms Are (Timing): Still Present Additional History Per: Patient Additional Complaint(s): 73yo female, history of diabetes, hypertension, asthma,comes to ER with intermittent epigastric pain x 1 week and today with vertiginous dizziness. Patient reports a room spinning sensation and nausea, and states she felt like she was almost going to fall but did not. She otherwise denies any shortness of breath, fever, cough, or chest pain. No additional complaints. PMD: [facility] Past Medical History Reviewed: Historical Data, Nursing Documentation, Vital Signs Vital Signs: Last Vital Signs Temp 98.0 F 10/27/18 19:43 Pulse 74 10/27/18 19:43 Resp 16 10/27/18 19:43 BP 177/71 H 10/27/18 19:43 Pulse Ox 98 10/27/18 19:43 - Medical History PMH: Anemia, Arthritis, Asthma, Depression, Diabetes (type II), Gastritis, HTN, Hypercholesterolemia, Osteoporosis Denies: CHF, HIV, Chronic Kidney Disease - Surgical History Surgical History: Cholecystectomy - Family History Family History: States: No Known Family Hx - Social History Current smoker - smoking cessation education provided: No Alcohol: None Drugs: Denies - Immunization History Hx Tetanus Toxoid Vaccination: No Hx Influenza Vaccination: No Hx Pneumococcal Vaccination: No - Home Medications Home Medications: Ambulatory Orders Medication Instructions Recorded RX: Albuterol Sulfate [Proair Hfa] 2 puff PO TID PRN 01/30/18 RX: Aspirin [Ecotrin] 81 mg PO DAILY 01/30/18 RX: Fluticasone Propionate 2 puff PO TID PRN 01/30/18 [Flovent Hfa] RX: Gabapentin [Neurontin] 300 mg PO DAILY 01/30/18 RX: Insulin Glargine, Recombina 25 units SC BID 01/30/18 [Lantus] RX: Metoprolol Succinate XL 25 mg PO DAILY 01/30/18 [Toprol XL] RX: Montelukast [Singulair] 10 mg PO HS 01/30/18 RX: Rosuvastatin Calcium 2.5 20 mg PO DAILY 01/30/18 [Crestor] RX: Sitagliptin Phos/Metformin HCl 1 tab PO BID 01/30/18 [Janumet 50-1,000 mg Tablet] RX: Valsartan/Hydrochlorothiazide 1 tab PO DAILY 01/30/18 [Valsartan-Hctz 320-25 mg Tab] Acetaminophen with Codeine 1 tab PO Q6H PRN #15 tab 04/11/18 [Tylenol with Codeine No. 3 300 mg-30 mg] Esomeprazole Magnesium [Nexium] 20 mg PO QAM #30 ecc 10/27/18 Meclizine [Antivert] 25 mg PO Q6 PRN #12 tab 10/27/18 - Allergies Allergies/Adverse Reactions: Allergies Allergy/AdvReac Type Severity Reaction Status Date / Time No Known Allergies Allergy Verified 06/27/16 19:27 Review of Systems ROS Statement: Except As Marked, All Systems Reviewed And Found Negative Constitutional: Negative for: Fever Cardiovascular: Negative for: Chest Pain Respiratory: Positive for: Cough. Negative for: Shortness of Breath Gastrointestinal: Positive for: Abdominal Pain. Negative for: Nausea, Vomiting, Diarrhea, Constipation Neurological: Positive for: Dizziness Physical Exam - Reviewed Nursing Documentation Reviewed: Yes Vital Signs Reviewed: Yes - Physical Exam Appears: Positive for: Non-toxic, No Acute Distress Head Exam: Positive for: ATRAUMATIC, NORMAL INSPECTION, NORMOCEPHALIC Skin: Positive for: Normal Color, Warm, DRY Eye Exam: Positive for: EOMI, PERRL Neck: Positive for: Normal, Supple Cardiovascular/Chest: Positive for: Regular Rate, Rhythm Respiratory: Positive for: Normal Breath Sounds Gastrointestinal/Abdominal: Positive for: Soft, Tenderness (epigastric). Negative for: Guarding, Rebound Back: Positive for: Normal Inspection Extremity: Positive for: Normal ROM. Negative for: Pedal Edema Neurologic/Psych: Positive for: Alert, Oriented. Negative for: Motor/Sensory Deficits - Laboratory Results Result Diagrams: 10/27/18 20:40 10/27/18 20:40 - ECG O2 Sat by Pulse Oximetry: 98 (RA) Pulse Ox Interpretation: Normal Medical Decision Making Medical Decision Making: Impression: 73yo female with epigastric pain and vertiginous dizziness Plan: -- IV Fluids -- Protonix 40ml IVP -- Meclizine 25mg PO Labs reviewed show no clinically sig abnormalities Patient reportys marked improvement in symptoms; Dx Gastritis, Vertigo Stable Scribe Attestation: Documented by Jeanette Torres, acting as a scribe for Jaun Ball MD. Provider Scribe Attestation: All medical record entries made by the Scribe were at my direction and personally dictated by me. I have reviewed the chart and agree that the record accurately reflects my personal performance of the history, physical exam, medical decision making, and the department course for this patient. I have also personally directed, reviewed, and agree with the discharge instructions and disposition. Disposition - Clinical Impression Clinical Impression: Gastritis, Vertigo - Disposition Disposition: Routine/Home Disposition Time: 22:00 Condition: STABLE Prescriptions: Esomeprazole Magnesium [Nexium] 20 mg PO QAM #30 ecc Meclizine [Antivert] 25 mg PO Q6 PRN #12 tab PRN Reason: Dizziness Instructions: Vertigo (a Type of Dizziness), Gastritis Forms: [facility] (Belarusian) Print Language: LUXEMBOURGER
--- NOTE | 2018-10-28 22:54 | CARD ---
APPROVED REPORT Date of service: 10/27/2018 EKG Measurement Heart [id number] [id number] <Conclusion> Normal sinus rhythm Normal ECG
== END 2018-10-27 22:53 | disposition home or self-care (01) ==
LOC: H.ER 19:30
DX: K29.70 Gastritis, unspecified, without bleeding (principal); R42 Dizziness and giddiness; R10.13 Epigastric pain; E11.9 Type 2 diabetes mellitus without complications; E78.00 Pure hypercholesterolemia, unspecified; I10 Essential (primary) hypertension; Z79.4 Long term (current) use of insulin; Z79.899 Other long term (current) drug therapy
CPT/HCPCS: 80053; 82948; 83690; 85025; 93005; 96374; 99285; C9113; J7030